=== PATIENT | female | born 1960 | race Caucasian/White ===

== ENCOUNTER 2019-03-12 06:30 | Outpatient (RCR) | payer BC, SELFPAY | END 2019-03-16 23:59 | disposition home or self-care (01) | LOC: SPT 06:30 | PROVIDERS: Family Provider Internal Medicine; PCP Internal Medicine; Visit Provider Internal Medicine | DX: M25.562 Pain in left knee (principal); M25.561 Pain in right knee | CPT/HCPCS: 97161 ==

== ENCOUNTER 2019-03-17 06:00 | Outpatient (RCR) | payer BC, SELFPAY | END 2019-04-14 23:59 | disposition home or self-care (01) | LOC: SPT 06:00 | PROVIDERS: Family Provider Internal Medicine; PCP Internal Medicine; Visit Provider Internal Medicine | DX: M25.561 Pain in right knee (principal); M25.562 Pain in left knee | CPT/HCPCS: 97110 ==

== ENCOUNTER → 2019-12-05 12:08 | Outpatient (BNVA) | payer BC, SELFPAY | PROVIDERS: Family Provider Internal Medicine; PCP Internal Medicine; Visit Provider Specialist | DX: M25.561 Pain in right knee (principal); M25.562 Pain in left knee | CPT/HCPCS: 73560; 73565 ==

== ENCOUNTER 2021-06-24 13:20 | Outpatient (CLI) | payer OTHER, SELFPAY ==
--- NOTE | 2021-06-24 13:41 | CT_ITS ---
WS: [email or web address] LDCT LUNG CANCER SCREENING HISTORY: NICOTINE DEPENDENCE,CIGARETTES TECHNIQUE: Axial imaging performed from the apices to 1 cm below the costophrenic angles. Coronal and sagittal reformats are submitted with axial MIP series. All CT scans at [facility] use at least one of these dose optimization techniques: automated exposure control; mA and/or kV adjustment per patient size (includes targeted exams where dose is matched to clinical indication); or iterativ e reconstruction. DLP: 82.99 mGy.cm DIvol: Mean CTDIvol: 1.60 (mGy) COMPARISON: 06/16/2018 Diagnostic quality: Satisfactory Lung Nodules: Numerous bilateral calcified and noncalcified pulmonary nodules. The largest nodules in the LEFT lower lobe measure 5 mm. No new nodule since 06/16/2018. No endobronchial lesions. Lungs: Mild pulmonary hyperinflation. Heart: Normal size heart. No effusion. Other findings: Mild atherosclerosis aorta. No mediastinal or hilar lymph nodes. No adrenal mass. Mil d increase in thoracic kyphosis. Degenerative disc disease and vacuum disc phenomenon is moderate in the midthoracic spine. CT/CT lung screening [id number] IMPRESSION: LUNG-RADS: 2-Benign Appearance or Behavior FOLLOW UP: 12 Month: Continue annual screening with LDCT OTHER FINDINGS (S MODIFIER): None.
== END 2021-06-24 13:21 | disposition home or self-care (01) ==
PROVIDERS: PCP Internal Medicine; Visit Provider Internal Medicine
DX: Z12.2 Encounter for screening for malignant neoplasm of respiratory organs (principal); F17.201 Nicotine dependence, unspecified, in remission
CPT/HCPCS: 71271

== ENCOUNTER 2022-03-01 08:49 | Outpatient (CLI) | payer OTHER, SELFPAY ==
--- NOTE | 2022-03-01 08:59 | MM_ITS ---
WS: [email or web address] BILATERAL SCREENING DIGITAL TOMOSYNTHESIS MAMMOGRAM WITH CAD HISTORY: SCREENING COMPARISON: 06/07/2014 Bilateral CC and MLO views with tomosynthesis and synthetic mammography submitted. Computer aided det ection analyzed. Breast composition: There are scattered areas of fibroglandular density. No suspicious masses, microc alcifications or architectural distortion. Benign bilateral calcifications. MM/[place] [id number] IMPRESSION: BI-RADS: 2-Benign FOLLOW UP: 1 Year Follow-up
== END 2022-03-01 08:50 | disposition home or self-care (01) ==
PROVIDERS: PCP Internal Medicine; Visit Provider Internal Medicine
DX: Z12.31 Encounter for screening mammogram for malignant neoplasm of breast (principal)
CPT/HCPCS: 77063; 77067

== ENCOUNTER 2022-08-18 06:48 | Outpatient (CLI) | payer OTHER, SELFPAY ==
--- NOTE | 2022-08-18 07:16 | MR_ITS ---
WS: [email or web address] MRI RIGHT KNEE HISTORY: PAIN IN R KNEE COMPARISON: 12/05/2019 Anterior cruciate ligament: Intact. Posterior cruciate ligament: Intact. Medial collateral ligament: Displaced from the joint line by a large extruded meniscus. Posterior lateral corner structures: Intact. Medial menisci: Complex tear posterior horn. Abnormal signal extends to the superior and inferior art icular surface and the free edge. Significant extrusion from the joint line. There is additional kevin a along the medial joint line. Lateral meniscus: Intact. Normal signal, size and shape. Extensor mechanism: Distal quadriceps tendon and patellar tendons are intact. Fluid and soft tissue: Moderate suprapatellar joint effusion. Small Alonso's cyst. Edema along the med ial compartment. Mixed signal 9 mm masslike component between the medial femoral condyle and the MCL. Differential includes cartilage or meniscal fragment. Complex meniscal cyst also within the differen tial. Osseous and articular structures: Patellofemoral compartment: Severe narrowing of patellofemoral compartment. Complete loss of cartilag e. Small amount of marrow edema along the lateral patellar facet and femoral condyle. Medial compartment: Moderate narrowing medial compartment with severe chondromalacia. Meniscal extrus ion. Lateral compartment: Mild narrowing with mild chondromalacia. Small marginal osteophytes. MR/MR knee RT wo con* [id number] IMPRESSION: 1. Large extruded medial meniscus is displacing the MCL with adjacent inflamma tory changes. There is an additional mixed signal 9 mm component which is super ior to the extruded meniscus displacing the MCL. This could be a complex menisc al cyst or loose body associated with a meniscal fragment or cartilage fragment . 2. Complex tear posterior horn medial meniscus. 3. Moderate suprapatellar joint effusion. 4. Moderate narrowing medial compartment and mild narrowing of the lateral com partment with chondromalacia. 5. 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
== END 2022-08-18 06:49 | disposition home or self-care (01) ==
PROVIDERS: PCP Internal Medicine; Visit Provider Nurse Practitioner Family
DX: M23.221 Derangement of posterior horn of medial meniscus due to old tear or injury, right knee (principal); M25.461 Effusion, right knee; M17.11 Unilateral primary osteoarthritis, right knee; M94.261 Chondromalacia, right knee; M71.21 Synovial cyst of popliteal space [Baker], right knee; M25.761 Osteophyte, right knee
CPT/HCPCS: 73721

== ENCOUNTER → 2022-09-27 08:34 | Outpatient (BNVA) | payer OTHER, SELFPAY | PROVIDERS: PCP Internal Medicine; Referring Provider Internal Medicine; Visit Provider Specialist | DX: M17.0 Bilateral primary osteoarthritis of knee (principal) | CPT/HCPCS: 73560; 73565 ==

== ENCOUNTER 2023-03-11 08:17 | Outpatient (CLI) | payer OTHER, SELFPAY ==
--- NOTE | 2023-03-11 08:20 | MM_ITS ---
WS: [email or web address] SCREENING DIGITAL TOMOSYNTHESIS MAMMOGRAM WITH CAD HISTORY: SCREENING COMPARISON: 03/01/2022 and 06/07/2014 Bilateral CC and MLO with tomosynthesis views submitted. Synthetic mammography reviewed. Computer aid ed detection analyzed. Breast composition: The breasts are almost entirely fatty. No suspicious masses, microcalcifications or architectural distortion. Benign scattered calcifications. IMPRESSION: MM/[place] [id number] BI-RADS: 2-Benign FOLLOW UP: 1 Year Follow-up
== END 2023-03-11 08:18 | disposition home or self-care (01) ==
LOC: RAD 08:18
PROVIDERS: PCP Internal Medicine; Visit Provider Nurse Practitioner Family
DX: Z12.31 Encounter for screening mammogram for malignant neoplasm of breast (principal); R92.1 Mammographic calcification found on diagnostic imaging of breast
CPT/HCPCS: 77063; 77067

== ENCOUNTER 2024-09-27 12:24 | Outpatient (CLI) | payer MEDICARE, SELFPAY ==
--- NOTE | 2024-09-27 12:31 | MM_ITS ---
WS: [email or web address] Bilateral screening 3D tomosynthesis digital mammogram, 09/27/2024 12:42 PM Clinical Data: SCREENING Comparison: 03/11/2023, 03/01/2022, 06/07/2014, 09/03/2011, 10/13/2009. Findings: No spiculated masses or clustered calcifications are seen. There are no secondary signs of carcinoma. MM/MM scr BI tomosynthesis [id number] Impression: Negative bilateral mammogram unchanged. Recommend annual screening mammograms. BIRADS: 1 - Negative. FOLLOW UP: 1 Year Follow-up DENSITY: There are scattered areas of fibroglandular density. The CAD electric organ assembler and checker was used
--- NOTE | 2024-09-27 12:31 | XR_ITS ---
WS: [email or web address] SCREENING DEXA SCAN [employer] CLINICAL INFORMATION: ASYMPTOMATIC POSTMENOPAUSAL STATUS COMPARISON: None. FINDINGS: The L1-L4 bone mineral density measures 1.170 g/cm2. This corresponds to a T score score of -0.1 and Z score of 1.4. Left femoral neck bone mineral density measures 0.998 g/cm2. This corresponds to a T score of -0.1 and Z score of 1.0. Right femoral neck bone mineral density measures 0.979 g/cm2. This corresponds to a T score -0.2of and Z score of 0.9. Mean femoral neck bone mineral density measures 0.988 g/cm2. This corresponds to a T score of -0.2 and Z score of 0.9. XR/XR DEXA axial skeleton* [id number] IMPRESSION: Normal bone mineralization lumbar spine and femoral necks.. Patient's FRAX calculated 10 year probability for major osteoporotic fracture i s 8.6% and osteoporotic hip fracture is 0.8%.
--- NOTE | 2024-09-27 12:31 | CT_ITS ---
WS: [email or web address] LDCT LUNG CANCER SCREENING TECHNIQUE: Noncontrast CT of the chest with coronal and sagittal reformatted images. CLINICAL INFORMATION: HX OF TOBACCO USE COMPARISON: 2021 DLP: 59.01 mGy.cm DIvol: Mean CTDIvol: 1.10 (mGy) All CT scans at [facility] use at least one of these dose optimization techniques: automated exposure control; mA and/or kV adjustment per patient size (includes targeted exams where dose is matched to clinical indication); or iterative reconstruction. FINDINGS: There are numerous calcified and noncalcified pulmonary nodules largest nodules in the LEFT lower lobe measuring 4-5 mm. No new suspicious pulmonary parenchymal abnormalities Aortic calcification. No mediastinal or hilar lymphadenopathy. No axillary lymphadenopathy. Coronary calcification. Adrenal glands are normal. Small esophageal hernia. Moderate thoracic kyphosis. CT/CT lung screening [id number] IMPRESSION: LUNG-RADS: 2-Benign Appearance or Behavior FOLLOW UP: 12 Month: Continue annual screening with LDCT
== END 2024-09-27 12:25 | disposition home or self-care (01) ==
LOC: RAD 12:27
PROVIDERS: PCP Internal Medicine; Visit Provider Internal Medicine
DX: Z12.31 Encounter for screening mammogram for malignant neoplasm of breast (principal); Z12.2 Encounter for screening for malignant neoplasm of respiratory organs; Z87.891 Personal history of nicotine dependence; R91.8 Other nonspecific abnormal finding of lung field; K44.9 Diaphragmatic hernia without obstruction or gangrene; M40.204 Unspecified kyphosis, thoracic region; Z78.0 Asymptomatic menopausal state; R92.323 Mammographic fibroglandular density, bilateral breasts
CPT/HCPCS: 71271; 77063; 77067; 77080